=== PATIENT | female | born 1990 | race Caucasian/White ===

== ENCOUNTER 2017-09-02 15:19 | Emergency (ER) | payer SELFPAY ==
[~2017-09-02] VITALS: Ht 154.9 cm; Wt 44.3 kg
[2017-09-02 16:20] VITALS: BP 132/87
== END 2017-09-02 16:22 | disposition home or self-care (01) ==
LOC: EME 15:19
DX: S93.602A Unspecified sprain of left foot, initial encounter (principal); W22.09XA Striking against other stationary object, initial encounter; F17.200 Nicotine dependence, unspecified, uncomplicated
CPT/HCPCS: 73630; 99281; 99283